=== PATIENT | female | born 1990 | race African-American/Black ===

== ENCOUNTER 2016-08-03 20:54 | Emergency (ER) | payer OTHER ==
[~2016-08-03] VITALS: Ht 175.3 cm; Wt 109.3 kg
[~2016-08-03 20:54] MED LIST: DEPO-PROVER150 MG/ML IM; DOXYCYCLINE HY100 M3 PO; ENDOCET 5-3251 EACH PO; FLAGYL500 MG PO; IBUPROFEN800 MG PO; PRENATAL TABLE1 EAC3 PO; VALTREX1000 MG PO
[2016-08-03 21:30] LABS: ADD MIUA? YES; BILIRUBIN NEGATIVE; BLOOD LARGE; COLOR YELLOW ((YELLOW)); GLUCOSE (STRIP) NEGATIVE; KETONES NEGATIVE; LEUKOCYTES MODERATE; NITRITE NEGATIVE; PROTEIN (STRIP) 100; SPECIFIC GRAVITY 1.023 (1.000-1.030); UROBILINOGEN 0.2 MG/DL (0.2-1.0)
[2016-08-03 21:40] LABS: BACTERIA NONE SEEN /HPF; EPITHELIAL CELLS 4+ /HPF; MUCUS 1+ /LPF; RED BLOOD CELLS TNTC /HPF (0-5); UCUL ADDED? YES; WHITE BLOOD CELLS TNTC /HPF (0-5); WHITE BLOOD CELLS CLUMP FEW /HPF (0-5)
[2016-08-03 22:47] LABS: HEMATOCRIT 40.5 % (36.0-46.0); MCHC 33.3 G/DL (30.0-36.0); RBC DIS.WIDTH-SD 46.6 % (39-53); WHITE BLOOD COUNT 8.9 K/uL (4.1-10.2)
[2016-08-03 22:55] LABS: CHLORIDE 103 mEq/L (99-109); POTASSIUM 3.9 mEq/L (3.7-5.4); SODIUM 137 mEq/L (136-147)
[2016-08-03 22:58] LABS: GLUCOSE 92 mg/dL (70-99)
[2016-08-03 22:59] LABS: ANION GAP 8 MEQ/L (2-14)
[2016-08-03 23:00] LABS: TOTAL BILIRUBIN 0.2 mg/dL (0.0-1.0)
[2016-08-03 23:01] LABS: ALKALINE PHOSPHATASE 43 IU/L (3-129); GFR ESTIMATE (CALCULATED) > 59 mL/min/
[2016-08-03 23:02] LABS: UREA NITROGEN (BUN) 11 mg/dL (9-23)
[2016-08-03 23:10] LABS: QUANTITATIVE HCG < 4.0 MIU/ML
[2016-08-03 23:37] LABS: HEMATOLOGY COMMENT 1 SMEAR COMPATIBLE; MEAN PLAT.VOLUME 12.1 uM^3 (9.5-12.4); PLAT.SUFFICIENCY ADEQUATE; PLATELET COUNT 179 K/uL (156-360)
[2016-08-04] MEDS ORDERED: PYRIDIUM100 MG PO (00:19)
[2016-08-04] MEDS ORDERED: KEFLEX500 MG PO (00:19)
[2016-08-04 00:32] VITALS: BP 132/95
== END 2016-08-04 00:33 | disposition home or self-care (01) ==
LOC: EME 20:54 → RME 20:54
DX: N39.0 Urinary tract infection, site not specified (principal); F17.200 Nicotine dependence, unspecified, uncomplicated
CPT/HCPCS: 80053; 81003; 84702; 85027; 87077; 87086; 87186; 99281; 99284

== ENCOUNTER 2017-01-03 14:38 | Emergency (ER) | payer OTHER ==
[~2017-01-03] VITALS: Ht 175.3 cm; Wt 111.7 kg
[~2017-01-03 14:38] MED LIST changes: +KEFLEX500 MG PO; +PYRIDIUM100 MG PO
[2017-01-03 15:28] LABS: HEMATOCRIT 41.6 % (36.0-46.0); MCH 30.4 PG (29.0-34.0); MCHC 33.9 G/DL (30.0-36.0); MCV 89.7 FL (83-99); MEAN PLAT.VOLUME 11.8 uM^3 (9.5-12.4); PLATELET COUNT 185 K/uL (156-360); RBC DIS.WIDTH-CV 13.4 % (11.8-14.6); RBC DIS.WIDTH-SD 43.8 % (39-53); RED BLOOD COUNT 4.64 M/uL (3.80-5.20); WHITE BLOOD COUNT 6.8 K/uL (4.1-10.2)
[2017-01-03 15:37] LABS: CHLORIDE 105 mEq/L (99-109); POTASSIUM 4.1 mEq/L (3.7-5.4); SODIUM 138 mEq/L (136-147)
[2017-01-03 15:39] LABS: GLUCOSE 98 mg/dL (70-99)
[2017-01-03 15:40] LABS: ANION GAP 6 MEQ/L (2-14)
[2017-01-03 15:43] LABS: GFR ESTIMATE (CALCULATED) > 59 mL/min/; UREA NITROGEN (BUN) 9 mg/dL (9-23)
[2017-01-03 15:48] LABS: TROP-I INTERPRETATION NEGATIVE; TROPONIN-I < 0.01 ng/mL (0.0-0.30)
[2017-01-03 17:50] LABS: ADD MIUA? YES; BILIRUBIN NEGATIVE; BLOOD NEGATIVE; COLOR YELLOW ((YELLOW)); GLUCOSE (STRIP) NEGATIVE; KETONES NEGATIVE; LEUKOCYTES NEGATIVE; NITRITE NEGATIVE; PROTEIN (STRIP) NEGATIVE; SPECIFIC GRAVITY 1.018 (1.000-1.030); UROBILINOGEN 0.2 MG/DL (0.2-1.0)
[2017-01-03 17:56] LABS: BACTERIA RARE /HPF; EPITHELIAL CELLS RARE /HPF; MUCUS TRACE /LPF; RED BLOOD CELLS 0-5 /HPF (0-5)
[2017-01-03 18:58] LABS: TROP-I INTERPRETATION NEGATIVE; TROPONIN-I < 0.01 ng/mL (0.0-0.30)
[2017-01-03] MEDS ORDERED: ANTIVERT25 MG PO (19:38)
[2017-01-03] MEDS ORDERED: MUCINEX D ER T1 EACH PO (19:38)
[2017-01-03 20:16] VITALS: BP 122/70
== END 2017-01-03 20:17 | disposition home or self-care (01) ==
LOC: EME 14:38
PROVIDERS: Physician Assistant
DX: R07.89 Other chest pain (principal); H65.02 Acute serous otitis media, left ear; R91.1 Solitary pulmonary nodule; F17.200 Nicotine dependence, unspecified, uncomplicated
CPT/HCPCS: 71020; 80048; 81003; 84484; 85027; 85379; 93005; 99281; 99285

== ENCOUNTER 2017-05-25 23:06 | Emergency (ER) | payer OTHER ==
[~2017-05-25] VITALS: Ht 175.3 cm; Wt 111.3 kg
[~2017-05-25 23:06] MED LIST changes: +ANTIVERT25 MG PO; +MUCINEX D ER T1 EACH PO
[2017-05-25 23:33] LABS: HEMOGLOBIN 13.1 G/DL (11.9-15.5); MCH 30.7 PG (29.0-34.0); MCHC 34.5 G/DL (30.0-36.0); PLATELET COUNT 179 K/uL (156-360); RBC DIS.WIDTH-CV 13.5 % (11.8-14.6); RED BLOOD COUNT 4.27 M/uL (3.80-5.20); WHITE BLOOD COUNT 14.3 K/uL (4.1-10.2)
[2017-05-25 23:45] LABS: CHLORIDE 103 mEq/L (99-109); POTASSIUM 3.8 mEq/L (3.7-5.4); SODIUM 139 mEq/L (136-147)
[2017-05-25 23:47] LABS: GLUCOSE 97 mg/dL (70-99)
[2017-05-25 23:51] LABS: CREATININE 0.8 mg/dL (0.6-1.3); GFR ESTIMATE (CALCULATED) > 59 mL/min/
[2017-05-25 23:52] LABS: UREA NITROGEN (BUN) 10 mg/dL (9-23)
[2017-05-25 23:55] LABS: TROP-I INTERPRETATION NEGATIVE; TROPONIN-I < 0.01 ng/mL (0.0-0.30)
[2017-05-26] MEDS ORDERED: ZITHROMAX Z-PA250 MG PO (02:07)
[2017-05-26 02:27] VITALS: BP 137/93
== END 2017-05-26 02:28 | disposition home or self-care (01) ==
LOC: EME 23:06
DX: J18.9 Pneumonia, unspecified organism (principal); R91.1 Solitary pulmonary nodule; F17.200 Nicotine dependence, unspecified, uncomplicated; Z86.79 Personal history of other diseases of the circulatory system; Z79.3 Long term (current) use of hormonal contraceptives
CPT/HCPCS: 71046; 80048; 84484; 85027; 93005; 99281; 99284